=== PATIENT | male | born 1980 | race Caucasian/White ===

== ENCOUNTER 2019-05-29 02:35 | Emergency (ER) | payer BC ==
[~2019-05-29] VITALS: Ht 177.8 cm; Wt 79.5 kg
[2019-05-29 02:40] VITALS: Ht 177.8 cm; Wt 79.5 kg
[2019-05-29 04:46] VITALS: BP 117/80
== END 2019-05-29 04:46 | disposition home or self-care (01) ==
LOC: D.ER 02:35
DX: S01.81XA Laceration without foreign body of other part of head, initial encounter (principal); W19.XXXA Unspecified fall, initial encounter; Y93.9 Activity, unspecified; Y92.9 Unspecified place or not applicable; F10.129 Alcohol abuse with intoxication, unspecified